=== PATIENT | male | born 1955 | race Caucasian/White ===

== ENCOUNTER 2016-07-29 10:31 | Emergency (ER) | payer SELFPAY ==
[~2016-07-29] VITALS: Ht 167.6 cm; Wt 56.0 kg
[~2016-07-29 10:31] MED LIST: BACT800T5 PO
[2016-07-29 10:33] VITALS: BP 117/71; PULSE 91; RESP 15; TEMP 97.7; O2SAT 99
[2016-07-29] MEDS ORDERED: BACT800T5 PO (11:23)
--- NOTE | 2016-07-29 11:27 | PD ---
HPI . finger swelling x 1 mt Chief Complaint: Injury Time Seen by Provider: 11:20 Travel History International Travel<30 days: No Contact w/Intl Traveler<30days: No Traveled to known affect area: No History of Present Illness HPI 60 yr old male with hx of anxiety and depression here with c/o right pinky finger swelling and possible infection for over 1 mt. Patient states he had been trying to take care of it at home with epsom salt and antibiotic ointment. He says he finally decided to come to the ER because area seems a little big and redness worsened. He denies any fever or chills. He is able to move his hand freely, but admits to right pinky pain. PFSH Past Medical History Anxiety: Yes Depression: Yes Diminished Hearing: No Social History Alcohol Use: No (QUIT 20 YRS) Tobacco Use: Yes (3/4 PPD) Substance Use: No Allergies-Medications (Allergen,Severity, Reaction): Coded Allergies: Penicillin (Verified Allergy, Severe, Anaphylaxis, 07/29/16) Reported Meds & Prescriptions Reported Meds & Active Scripts Active Bactrim DS (Sulfamethoxazole-Trimethoprim) 800-160 Mg Tab 1 Tab PO BID Bactrim Ds1 Tab 1 Tab Tab 1 Tab PO Q12 10 Days Review of Systems General / Constitutional: No: Fever Eyes: No: Visual changes HENT: No: Headaches Cardiovascular: No: Chest Pain or Discomfort Respiratory: No: Shortness of Breath Gastrointestinal: No: Abdominal Pain Genitourinary: No: Dysuria Musculoskeletal: Positive: Pain (right pinky) Skin: Positive Other (swelling and redness/ right pinky), No Rash Neurologic: No: Weakness Psychiatric: No: Depression Endocrine: No: Polydipsia Hematologic/Lymphatic: No: Easy Bruising Physical Exam Narrative GENERAL: AAO x 3, no acute distress, Well-nourished, well-developed patient. SKIN: Warm and dry. No visible rashes or bruising. see extremity below: HEAD: Normocephalic and atraumatic. EYES: No scleral icterus. No injection or drainage. EOM intact, PERRLA ENT: No nasal drainage noted. Mucous membranes pink. Airway patent. NECK: Supple, trachea midline. No JVD. CARDIOVASCULAR: Regular rate and rhythm without murmurs, gallops, or rubs. RESPIRATORY: Breath sounds equal bilaterally. No accessory muscle use. No rhonchi or rales. GASTROINTESTINAL: Abdomen soft, non-tender, nondistended. EXTREMITY: right hand: right 5th digit + tenderness and swelling. Non- fluctuant no definitive abscess formation. Full range of motion in all joints. No joint swelling/injury. Lumbrical and interossei function intact. Normal opposition of thumb. Distal extremity neurovascularly intact with intact two point discrimination. BACK: Nontender without obvious deformity. No CVA tenderness. PSYCH: AAO x 3, normal affect. Data Data Last Documented VS Vital Signs Date Time Temp Pulse Resp B/P Pulse Ox O2 Delivery O2 Flow Rate FiO2 07/29/16 10:33 97.7 91 15 117/71 99 MDM Medical Decision Making Medical Screen Exam Complete: Yes Emergency Medical Condition: Yes Medical Record Reviewed: Yes Differential Diagnosis finger cellulitis, paronychia, Narrative Course 60 yr old male with hx of anxiety and depression here with c/o right pinky finger swelling and possible infection for over 1 mt. Patient states he had been trying to take care of it at home with epsom salt and antibiotic ointment. He says he finally decided to come to the ER because area seems a little big and redness worsened. He denies any fever or chills. He is able to move his hand freely, but admits to right pinky pain. patient seen and examined. There is a cellulitis and paronychia on his right pinky. The area is not fluctuant and cannot be lanced. I advised oral antibiotics and follow up with his primary care patient. I also advised keeping the area clean daily. Patient verbalized understanding of instructions and thanked me for his care. Diagnosis Primary Impression: Paronychia of finger of right hand Additional Impression: Cellulitis of finger of right hand Patient Instructions: Cellulitis (ED), General Instructions, Paronychia (ED) Additional Instructions: Take antibiotics as prescribed. It is free at [facility]. Keep finger clean. Do not pick at the area. Follow up with your primary care provider in 3-5 days. Scripts Sulfamethoxazole-Trimethoprim (Bactrim DS)800-160 Mg Tab1 Tab PO BID #20 TAB Ref 0 Prov:Jessica Hernandez 07/29/16 Disposition: 01 DISCHARGE HOME Condition: Stable Jessica Hernandez Jul 29, 2016 11:26
== END 2016-07-29 11:48 | disposition home or self-care (01) ==
LOC: NEPB 10:31
DX: L03.011 Cellulitis of right finger (principal); F41.8 Other specified anxiety disorders; F17.210 Nicotine dependence, cigarettes, uncomplicated
CPT/HCPCS: 99283